=== PATIENT | male | born 1935 | race Caucasian/White ===

== ENCOUNTER 2019-11-20 03:58 | Inpatient (IN) | payer MEDICARE, BC ==
[2019-11-20] MEDS ORDERED: Haloperidol Lactate 5 MG/ML SDV IM ONE (04:04)
--- NOTE | 2019-11-20 04:12 | EDM.PDOC ---
ED HPI GENERAL MEDICAL PROBLEM - General Chief Complaint: Behavioral/Psych Stated Complaint: MEDICAL [facility]IA [facility] Time Seen by Provider: 11/20/19 04:05 Source of Information: Reports: Patient History Limitations: Reports: Other (initially no old records) - History of Present Illness INITIAL COMMENTS - FREE TEXT/NARRATIVE: 84 yo male was recently discharged from [facility] in [place] and admitted yesterday to the memory care unit at [facility]. They report that he was agitated all day there, but they did nothing apparently for this. Now tonight he had a fall with minor injuries so sent him via EMS to the ER telling them they can't handle him. Has known dementia. Has apparently been falling a lot lately. Had a CT scan of his head 10/30/2019. Onset: Other (yesterday?) Onset Date: 11/19/19 Duration: Day(s): (1), Constant Location: Reports: Generalized Quality: Reports: Other (unknown if there is pain, not able to verbalize) Severity: Moderate Improves with: Reports: None Worsens with: Reports: Other (unknown) Context: Reports: Other (See HPI) Associated Symptoms: Reports: Confusion, Other (agitation). Denies: Fever/ Chills Treatments [employer]: Reports: Other (see below) (usual meds only) - Related Data Allergies Allergy/AdvReac Type Severity Reaction Status Date / Time amoxicillin Allergy Cannot Verified 11/20/19 04:26 Remember meperidine [From Demerol] Allergy Cannot Verified 11/20/19 04:26 Remember Sulfa (Sulfonamide Allergy Cannot Verified 11/20/19 04:26 Antibiotics) Remember Home Meds: Home Meds Acetaminophen [Tylenol Extra Strength] 1,000 mg PO TID 11/20/19 [History] Aspirin 81 mg PO DAILY 11/20/19 [History] Finasteride 5 mg PO DAILY 11/20/19 [History] LORazepam [Lorazepam] 0.25 mg PO BID 11/20/19 [History] Latanoprost/Pf [Latanoprost 0.005% Eye Drop] 1 drop EYEBOTH BEDTIME 11/20/19 [ History] Levothyroxine Sodium [Synthroid] 100 mcg PO ACBREAKFAST 11/20/19 [History] Memantine HCl 10 mg PO BID 11/20/19 [History] Tamsulosin HCl [Flomax] 0.4 mg PO BID 11/20/19 [History] risperiDONE 0.25 mg PO QID 11/20/19 [History] traZODone HCl [Trazodone HCl] 50 mg PO BEDTIME 11/20/19 [History] ED ROS GENERAL - Review of Systems Review Of Systems: Unable To Obtain (due to dementia) Reason Not Obtained: altered level of consciousness/dementia - Physical Exam Exam: See Below Exam Limited By: Altered Mental Status General Appearance: Mild Distress, Thin, Other (mildly agitated) Eye Exam: Bilateral Eye: Normal Inspection Ears: Normal External Exam Nose: Normal Inspection, No Blood Throat/Mouth: Normal Voice, No Airway Compromise, Other (dry appearing oral mucosa) Head Exam: Facial Ecchymosis (forehead, not new) Neck: Normal Inspection Respiratory/Chest: No Respiratory Distress, Lungs Clear, Normal Breath Sounds, No Accessory Muscle Use, Other (mildly tachypneic) Cardiovascular: Regular Rate, Rhythm, No Edema GI/Abdominal: Normal Bowel Sounds, Soft, Non-Tender, No Distention Neuro Exam (Abbreviated): Alert, No Motor/Sensory Deficits, Confused, Disoriented. No: Oriented, Normal Cognition Extremities: Normal Inspection, Normal Range of Motion, Non-Tender, No Pedal Edema Psychiatric: Normal Affect, Normal Mood Skin Exam: Warm, Dry, Intact, No Rash, Ecchymosis, Wound/Incision (skin tear R elbow). No: Increased Warmth Course - Vital Signs Text/Narrative:: bladder scan [address] Miles called @ 0622h Last Recorded V/S: Last Vital Signs Temp 35.7 C L 11/21/19 19:35 Pulse 124 H 11/21/19 19:35 Resp 121 H 11/21/19 19:35 BP 103/66 11/21/19 19:35 Pulse Ox 86 L 11/21/19 19:35 - Orders/Labs/Meds Orders: Medication Orders Albuterol (Proventil Neb Soln) 2.5 mg NEB Q2H PRN PRN Reason: Shortness of Breath Last Admin: 11/21/19 14:36 Dose: 2.5 mg Atropine Sulfate (Atropine 1%) 0 ml SL Q4H PRN PRN Reason: secretions Last Admin: 11/21/19 16:22 Dose: 4 drop Haloperidol Lactate (Haldol) 2 mg IVPUSH Q6H PRN PRN Reason: severe agitation Last Admin: 11/21/19 11:17 Dose: 2 mg Admin: 11/20/19 22:24 Dose: 2 mg Promethazine HCl 6.25 mg/ (Sodium Chloride) 50.25 mls @ 200 mls/hr IV Q6H PRN PRN Reason: Nausea/Vomiting Latanoprost (Xalatan 0.005% Ophth Soln) 0 ml EYEBOTH BEDTIME NAYELI Last Admin: 11/20/19 20:57 Dose: 1 drop Levothyroxine Sodium (Synthroid) 100 mcg PO ACBREAKFAST NAYELI Last Admin: 11/21/19 11:21 Dose: Not Given Admin: 11/20/19 08:43 Dose: 100 mcg Lorazepam (Ativan Oral Concentrate 1mg/0.5 Ml U/D) 0.5 mg PO Q1H PRN PRN Reason: Agitation Last Admin: 11/21/19 17:50 Dose: 0.5 mg Morphine Sulfate (Morphine 10 Mg/0.5 Ml Oral Syringe) 10 mg PO Q1H PRN PRN Reason: air hunger Last Admin: 11/21/19 17:28 Dose: 10 mg Admin: 11/21/19 16:26 Dose: 10 mg Ondansetron HCl (Zofran Odt) 4 mg PO Q6H PRN PRN Reason: Nausea able to take PO Labs: Laboratory Tests 11/20/19 11/20/19 11/20/19 Range/Units 04:15 04:15 04:55 WBC 11.5 H (4.5-11.0) K/uL RBC 3.94 L (4.30-5.90) M/uL Hgb 12.9 (12.0-15.0) g/dL Hct 42.1 (40.0-54.0) % MCV 107 H (80-98) fL MCH 33 H (27-31) pg MCHC 31 L (32-36) % Plt Count 158 (150-400) K/uL Puncture Site L brachial ABG pH 7.677 H* (7.350-7.450) ABG pCO2 15.9 L* (35.0-42.0) mmHg ABG pO2 70.3 L (75.0-100.0) mmHg ABG HCO3 19.0 L (22.0-26.0) mmol/L ABG Total CO2 16.1 L (23.0-27.0) mmol/L ABG O2 Saturation 97.0 (95.0-98.0) % ABG O2 Content 17.4 (15.0-23.0) %vol ABG Base Excess 0.6 mm/L ABG Hemoglobin 13.0 L (13.5-18.0) g/dL ABG Oxyhemoglobin 95.3 % ABG Carboxyhemoglobin 1.2 (0.0-1.6) % ABG Methemoglobin 0.6 % O2 Delivery Device Nasal cannula Oxygen Flow Rate 3.0 L Sodium 153 H (140-148) mmol/L Potassium 4.6 (3.6-5.2) mmol/L Chloride 115 H (100-108) mmol/L Carbon Dioxide 24 (21-32) mmol/L Anion Gap 18.6 H (5.0-14.0) mmol/L BUN 74 H (7-18) mg/dL Creatinine 2.5 H (0.8-1.3) mg/dL Est Cr Clr Drug Dosing TNP Estimated GFR (MDRD) 25 L (>60) Glucose 124 H (74-106) mg/dL Calcium 8.6 (8.5-10.1) mg/dL Troponin I 0.057 H (0.000-0.056) ng/mL Urine Color (YELLOW) Urine Appearance (CLEAR) Urine pH (5.0-8.0) Ur Specific [place] (1.008-1.030) Urine Protein (NEGATIVE) mg/dL Urine Glucose (UA) (NEGATIVE) mg/dL Urine Ketones (NEGATIVE) mg/dL Urine Occult Blood (NEGATIVE) Urine Nitrite (NEGATIVE) Urine Bilirubin (NEGATIVE) Urine Urobilinogen (0.2-1.0) EU/dL Ur Leukocyte Esterase (NEGATIVE) Urine RBC (0-5) Urine WBC (0-5) Ur Epithelial Cells Amorphous Sediment Urine Bacteria Urine Mucus 11/20/19 Range/Units 06:28 WBC (4.5-11.0) K/uL RBC (4.30-5.90) M/uL Hgb (12.0-15.0) g/dL Hct (40.0-54.0) % MCV (80-98) fL MCH (27-31) pg MCHC (32-36) % Plt Count (150-400) K/uL Puncture Site ABG pH (7.350-7.450) ABG pCO2 (35.0-42.0) mmHg ABG pO2 (75.0-100.0) mmHg ABG HCO3 (22.0-26.0) mmol/L ABG Total CO2 (23.0-27.0) mmol/L ABG O2 Saturation (95.0-98.0) % ABG O2 Content (15.0-23.0) %vol ABG Base Excess mm/L ABG Hemoglobin (13.5-18.0) g/dL ABG Oxyhemoglobin % ABG Carboxyhemoglobin (0.0-1.6) % ABG Methemoglobin % O2 Delivery Device Oxygen Flow Rate L Sodium (140-148) mmol/L Potassium (3.6-5.2) mmol/L Chloride (100-108) mmol/L Carbon Dioxide (21-32) mmol/L Anion Gap (5.0-14.0) mmol/L BUN (7-18) mg/dL Creatinine (0.8-1.3) mg/dL Est Cr Clr Drug Dosing Estimated GFR (MDRD) (>60) Glucose (74-106) mg/dL Calcium (8.5-10.1) mg/dL Troponin I (0.000-0.056) ng/mL Urine Color Yellow (YELLOW) Urine Appearance Clear (CLEAR) Urine pH 7.5 (5.0-8.0) Ur Specific [place] 1.020 (1.008-1.030) Urine Protein Trace H (NEGATIVE) mg/dL Urine Glucose (UA) Negative (NEGATIVE) mg/dL Urine Ketones Negative (NEGATIVE) mg/dL Urine Occult Blood Negative (NEGATIVE) Urine Nitrite Negative (NEGATIVE) Urine Bilirubin Negative (NEGATIVE) Urine Urobilinogen 2.0 H (0.2-1.0) EU/dL Ur Leukocyte Esterase Negative (NEGATIVE) Urine RBC 0-5 (0-5) Urine WBC 0-5 (0-5) Ur Epithelial Cells Rare Amorphous Sediment Not seen Urine Bacteria Few Urine Mucus Not seen Meds: Medications Generic Name Dose Route Start Last Admin Trade Name Freq PRN Reason Stop Dose Admin Albuterol 2.5 mg 11/21/19 14:13 11/21/19 14:36 Proventil Neb Soln NEB 2.5 mg Q2H PRN Administration Shortness of Breath Atropine Sulfate 0 ml 11/21/19 15:55 11/21/19 16:22 Atropine 1% SL 4 drop Q4H PRN Administration secretions Haloperidol Lactate 2 mg 11/20/19 15:42 11/21/19 11:17 Haldol IVPUSH 2 mg Q6H PRN Administration severe agitation Promethazine HCl 6.25 mg/ 50.25 mls @ 200 mls/hr 11/20/19 07:30 Sodium Chloride IV Q6H PRN Nausea/Vomiting Latanoprost 0 ml 11/20/19 21:00 11/20/19 20:57 Xalatan 0.005% Ophth Soln EYEBOTH 1 drop BEDTIME NAYELI Administration Levothyroxine Sodium 100 mcg 11/20/19 08:30 11/21/19 11:21 Synthroid PO Not Given ACBREAKFAST NAYELI Lorazepam 0.5 mg 11/21/19 15:57 11/21/19 17:50 Ativan Oral Concentrate 1mg/0.5 Ml U/D PO 0.5 mg Q1H PRN Administration Agitation Morphine Sulfate 10 mg 11/21/19 15:55 11/21/19 17:28 Morphine 10 Mg/0.5 Ml Oral Syringe PO 10 mg Q1H PRN Administration air hunger Ondansetron HCl 4 mg 11/20/19 07:30 Zofran Odt PO Q6H PRN Nausea able to take PO Discontinued Medications Generic Name Dose Route Start Last Admin Trade Name Freq PRN Reason Stop Dose Admin Acetaminophen 650 mg 11/20/19 07:30 Tylenol PO Q4H PRN Pain (Mild 1-3)/fever Acetaminophen 1,000 mg 11/20/19 09:00 11/21/19 14:31 Tylenol Extra Strength PO Not Given TID [facility] Aspirin 81 mg 11/20/19 09:00 11/21/19 11:21 Aspirin PO Not Given DAILY [facility] Diphenhydramine HCl 25 mg 11/20/19 05:22 11/20/19 05:26 Benadryl IVPUSH 11/20/19 05:23 25 mg ONETIME ONE Administration Divalproex Sodium 250 mg 11/20/19 09:00 11/21/19 11:21 Divalproex Sodium PO Not Given BIDMEALS NAYELI Finasteride 5 mg 11/20/19 09:00 11/21/19 11:22 Proscar PO Not Given DAILY NAYELI Haloperidol Lactate 5 mg 11/20/19 04:04 11/20/19 04:31 Haldol IM 11/20/19 04:05 5 mg ONETIME ONE Administration Haloperidol Lactate 5 mg 11/20/19 05:22 11/20/19 05:27 Haldol IVPUSH 11/20/19 05:23 5 mg ONETIME ONE Administration Lactated Ringer's 1,000 mls @ 1,000 mls/hr 11/20/19 04:03 11/20/19 06:09 Ringers, Lactated IV 11/20/19 05:02 Not Given BOLUS ONE Sodium Chloride 1,000 mls @ 150 mls/hr 11/20/19 06:15 11/20/19 06:13 Normal Saline IV 150 mls/hr ASDIRECTED NAYELI Administration Potassium Chloride/Sodium Chloride 1,000 mls @ 100 mls/hr 11/20/19 07:45 23:29 Normal Saline With 20 Meq Kcl IV 100 mls/hr ASDIRECTED NAYELI Administration Dextrose/Water 1,000 mls @ 100 mls/hr 11/21/19 07:45 11/21/19 08:09 Dextrose 5% In Water IV 100 mls/hr ASDIRECTED NAYELI Administration Lorazepam 0.5 mg 11/20/19 05:12 11/20/19 05:19 Ativan IVPUSH 11/20/19 05:13 0.5 mg ONETIME ONE Administration Lorazepam 0.5 mg 11/20/19 06:14 11/20/19 06:19 Ativan IVPUSH 11/20/19 06:15 0.5 mg ONETIME ONE Administration Lorazepam 0.25 mg 11/20/19 09:00 11/21/19 11:21 Ativan PO Not Given BID NAYELI Melatonin 9 mg 11/20/19 21:00 11/20/19 20:56 Melatonin PO 9 mg BEDTIME NAYELI Administration Memantine 10 mg 11/20/19 09:00 11/21/19 11:22 Namenda PO Not Given BID [facility] Morphine Sulfate 5 mg 11/20/19 08:57 11/21/19 14:30 Morphine 10 Mg/0.5 Ml Oral Syringe PO 5 mg Q2H PRN Administration Pain Risperidone 0.25 mg 11/20/19 10:00 Risperidal PO QID NAYELI Risperidone 0.5 mg 11/20/19 09:15 11/21/19 11:22 Risperidal PO Not Given BID NAYELI Tamsulosin HCl 0.4 mg 11/20/19 08:00 11/21/19 11:21 Flomax PO Not Given BIDPC NAYELI Trazodone HCl 50 mg 11/20/19 21:00 11/20/19 20:57 Trazodone PO 50 mg BEDTIME NAYELI Administration Departure - Departure Time of Disposition: 06:25 Disposition: Admitted As Inpatient 67 Condition: Poor Clinical Impression: Dehydration, Hypernatremia, Hyperventilation, Respiratory alkalosis, Agitation - Discharge Information *PRESCRIPTION DRUG MONITORING PROGRAM REVIEWED*: No *COPY OF PRESCRIPTION DRUG MONITORING REPORT IN PATIENT IRIS: No Sepsis Event Note - Focused Exam Date Exam was Performed: 11/22/19 Time Exam was Performed: 08:18
[2019-11-20] MEDS: Lactated Ringers 1,000 ML IV ONE ×2 (05:12→06:09)
[2019-11-20] MEDS ORDERED: LORazepam 2 MG/ML SDV IVPUSH ONE ×2 (05:12→06:14)
[2019-11-20] MEDS ORDERED: diphenhydrAMINE 50 MG/ML SDV IVPUSH ONE (05:22)
[2019-11-20] MEDS ORDERED: Haloperidol Lactate 5 MG/ML SDV IVPUSH ONE (05:22)
[2019-11-20] MEDS ORDERED: Sodium Chloride 0.9% 1,000 ML IV SCH (06:15)
--- NOTE | 2019-11-20 07:10 | PCM.HP.2 ---
H&P History of Present Illness - General Date of Service: 11/20/19 Source of Information: Snf Records, Old Records. No: Patient, Significant Other History Limitations: Reports: Altered Mental Status (patient is nonverbal and spouse has not returned calls) - History of Present Illness Initial Comments - Free Text/Narative: Patient is an 84yo male with profound dementia was brought to the ER because of a fall [facility] a [facility]. He was recently transferred to the nursing facility from an inpatient memory care facility. He is agitated but has improved with haldol, but is still unresponsive. He does respond to pain and some stimuli, but doesn't respond to his name or any verbal commands. His was not available to answer questions. Onset of Symptoms: Reports: Gradual, Unknown/Unsure - Related Data Allergies/Adverse Reactions: Allergies Allergy/AdvReac Type Severity Reaction Status Date / Time amoxicillin Allergy Cannot Verified 11/20/19 04:26 Remember meperidine [From Demerol] Allergy Cannot Verified 11/20/19 04:26 Remember Sulfa (Sulfonamide Allergy Cannot Verified 11/20/19 04:26 Antibiotics) Remember Home Medications: Home Meds Acetaminophen [Tylenol Extra Strength] 1,000 mg PO TID 11/20/19 [History] Aspirin 81 mg PO DAILY 11/20/19 [History] Finasteride 5 mg PO DAILY 11/20/19 [History] LORazepam [Lorazepam] 0.25 mg PO BID 11/20/19 [History] Latanoprost/Pf [Latanoprost 0.005% Eye Drop] 1 drop EYEBOTH BEDTIME 11/20/19 [ History] Levothyroxine Sodium [Synthroid] 100 mcg PO ACBREAKFAST 11/20/19 [History] Memantine HCl 10 mg PO BID 11/20/19 [History] Tamsulosin HCl [Flomax] 0.4 mg PO BID 11/20/19 [History] risperiDONE 0.25 mg PO QID 11/20/19 [History] traZODone HCl [Trazodone HCl] 50 mg PO BEDTIME 11/20/19 [History] Past Medical History HEENT History: Reports: Glaucoma, Macular Degeneration, Sinusitis Cardiovascular History: Reports: Afib, Angina, Arrhythmia, Pacemaker, Syncope, Other (See Below) Other Cardiovascular History: ventricular tachycardia Gastrointestinal History: Reports: GERD, Other (See Below) Other Gastrointestinal History: inguinal hernia Genitourinary History: Reports: BPH, Chronic Renal Insuffiency, Renal Calculus, Urinary Incontinence, Other (See Below) Other Genitourinary History: herpes genitalia, impotence Musculoskeletal History: Reports: Back Pain, Chronic, Other (See Below) Other Musculoskeletal History: hip pain Neurological History: Reports: Alzheimers Disease, Neuropathy, Peripheral, TIA Psychiatric History: Reports: Depression, Other (See Below) Other Psychiatric History: delirious Endocrine/Metabolic History: Reports: Hyperthyroidism, Hypothyroidism, Other ( See Below) Other Endocrine/Metabolic History: graves disease - Past Surgical History Cardiovascular Surgical History: Reports: Pacer Social & Family History - Family History Family Medical History: Unobtainable - Tobacco Use Smoking Status *Q: Unknown Ever Smoked H&P Review of Systems - Review of Systems: Review Of Systems: Unable To Obtain Reason Not Obtained: Patient is nonverbal due to late stage dementia Exam - Exam Exam: See Below - Vital Signs Vital Signs: Last Vital Signs Temp 36.2 C 11/20/19 04:03 Pulse 86 11/20/19 06:06 Resp 34 H 11/20/19 06:06 BP Pulse Ox 96 11/20/19 06:06 Weight: 77.111 kg - Exam General: Mild Distress, Obtunded. No: Alert, Oriented, Cooperative Neck: Supple, Trachea Midline, 2 Lungs: Clear to Auscultation, Normal Respiratory Effort Cardiovascular: Regular Rate, Regular Rhythm GI/Abdominal Exam: Normal Bowel Sounds, Soft, Non-Tender, No Organomegaly, No Distention, No Abnormal Bruit, No Mass, Pelvis Stable (Male) Exam: Deferred Rectal (Males) Exam: Deferred Back Exam: Normal Inspection, Full Range of Motion, NT Extremities: Normal Inspection, Normal Range of Motion, Non-Tender, No Pedal Edema, Normal Capillary Refill Skin: Warm, Dry, Wound (skin tear on R elbow POA). No: Intact Neuro Extensive - Mental Status: Inattentive, Nl Response to Commands, Withdraws to Pain. No: Alert, Oriented x3, Normal Mood/Affect, Normal Cognition , Memory Intact Neuro Extensive - Motor, Sensory, Reflexes: Motor/Sensory Deficits Psychiatric: Other (not able to respond). No: Alert, Normal Affect, Normal Mood - Patient Data Lab Results Last 24 hrs: Laboratory Results - last 24 hr 11/20/19 11/20/19 11/20/19 Range/Units 04:15 04:15 04:55 WBC 11.5 H (4.5-11.0) K/uL RBC 3.94 L (4.30-5.90) M/uL Hgb 12.9 (12.0-15.0) g/dL Hct 42.1 (40.0-54.0) % MCV 107 H (80-98) fL MCH 33 H (27-31) pg MCHC 31 L (32-36) % Plt Count 158 (150-400) K/uL Puncture Site L brachial ABG pH 7.677 H* (7.350-7.450) ABG pCO2 15.9 L* (35.0-42.0) mmHg ABG pO2 70.3 L (75.0-100.0) mmHg ABG HCO3 19.0 L (22.0-26.0) mmol/L ABG Total CO2 16.1 L (23.0-27.0) mmol/L ABG O2 Saturation 97.0 (95.0-98.0) % ABG O2 Content 17.4 (15.0-23.0) %vol ABG Base Excess 0.6 mm/L ABG Hemoglobin 13.0 L (13.5-18.0) g/dL ABG Oxyhemoglobin 95.3 % ABG Carboxyhemoglobin 1.2 (0.0-1.6) % ABG Methemoglobin 0.6 % O2 Delivery Device Nasal cannula Oxygen Flow Rate 3.0 L Sodium 153 H (140-148) mmol/L Potassium 4.6 (3.6-5.2) mmol/L Chloride 115 H (100-108) mmol/L Carbon Dioxide 24 (21-32) mmol/L Anion Gap 18.6 H (5.0-14.0) mmol/L BUN 74 H (7-18) mg/dL Creatinine 2.5 H (0.8-1.3) mg/dL Est Cr Clr Drug Dosing TNP Estimated GFR (MDRD) 25 L (>60) Glucose 124 H (74-106) mg/dL Calcium 8.6 (8.5-10.1) mg/dL Troponin I 0.057 H (0.000-0.056) ng/mL Urine Color (YELLOW) Urine Appearance (CLEAR) Urine pH (5.0-8.0) Ur Specific [place] (1.008-1.030) Urine Protein (NEGATIVE) mg/dL Urine Glucose (UA) (NEGATIVE) mg/dL Urine Ketones (NEGATIVE) mg/dL Urine Occult Blood (NEGATIVE) Urine Nitrite (NEGATIVE) Urine Bilirubin (NEGATIVE) Urine Urobilinogen (0.2-1.0) EU/dL Ur Leukocyte Esterase (NEGATIVE) Urine RBC (0-5) Urine WBC (0-5) Ur Epithelial Cells Amorphous Sediment Urine Bacteria Urine Mucus 11/20/19 Range/Units 06:28 WBC (4.5-11.0) K/uL RBC (4.30-5.90) M/uL Hgb (12.0-15.0) g/dL Hct (40.0-54.0) % MCV (80-98) fL MCH (27-31) pg MCHC (32-36) % Plt Count (150-400) K/uL Puncture Site ABG pH (7.350-7.450) ABG pCO2 (35.0-42.0) mmHg ABG pO2 (75.0-100.0) mmHg ABG HCO3 (22.0-26.0) mmol/L ABG Total CO2 (23.0-27.0) mmol/L ABG O2 Saturation (95.0-98.0) % ABG O2 Content (15.0-23.0) %vol ABG Base Excess mm/L ABG Hemoglobin (13.5-18.0) g/dL ABG Oxyhemoglobin % ABG Carboxyhemoglobin (0.0-1.6) % ABG Methemoglobin % O2 Delivery Device Oxygen Flow Rate L Sodium (140-148) mmol/L Potassium (3.6-5.2) mmol/L Chloride (100-108) mmol/L Carbon Dioxide (21-32) mmol/L Anion Gap (5.0-14.0) mmol/L BUN (7-18) mg/dL Creatinine (0.8-1.3) mg/dL Est Cr Clr Drug Dosing Estimated GFR (MDRD) (>60) Glucose (74-106) mg/dL Calcium (8.5-10.1) mg/dL Troponin I (0.000-0.056) ng/mL Urine Color Yellow (YELLOW) Urine Appearance Clear (CLEAR) Urine pH 7.5 (5.0-8.0) Ur Specific [place] 1.020 (1.008-1.030) Urine Protein Trace H (NEGATIVE) mg/dL Urine Glucose (UA) Negative (NEGATIVE) mg/dL Urine Ketones Negative (NEGATIVE) mg/dL Urine Occult Blood Negative (NEGATIVE) Urine Nitrite Negative (NEGATIVE) Urine Bilirubin Negative (NEGATIVE) Urine Urobilinogen 2.0 H (0.2-1.0) EU/dL Ur Leukocyte Esterase Negative (NEGATIVE) Urine RBC 0-5 (0-5) Urine WBC 0-5 (0-5) Ur Epithelial Cells Rare Amorphous Sediment Not seen Urine Bacteria Few Urine Mucus Not seen Result Diagrams: 11/20/19 04:15 11/20/19 04:15 Sepsis Event Note - Evaluation Sepsis Screening Result: No Definite Risk - Focused Exam Vital Signs: Vital Signs Temp Pulse Resp Pulse Ox 11/20/19 06:06 86 34 H 96 11/20/19 04:03 36.2 C 105 H 42 H 90 L Date Exam was Performed: 11/20/19 Time Exam was Performed: 07:46 *Q Meaningful Use (ADM) - VTE *Q VTE Mechanical Contraindications *Q: At Risk for Falls - Problem List (1) Alzheimer's dementia with behavioral disturbance SNOMED Code(s): 0723038616699 ICD Code: G30.9 - ALZHEIMER'S DISEASE, UNSPECIFIED; F02.81 - DEMENTIA IN OTH DISEASES CLASSD ELSWHR W BEHAVIORAL DISTURB Status: Acute Current Visit: Yes Onset Date: Unknown Problem Details: Patient unable to understand or respond to questions or stimulus besides pain. Given haldol. Patient able to take oral medications at baseline Qualifiers: Alzheimer's disease onset: unspecified onset Qualified Code(s): G30.9 - Alzheimer's disease, unspecified; F02.81 - Dementia in other diseases classified elsewhere with behavioral disturbance (2) Agitation SNOMED Code(s): 474762587 ICD Code: R45.1 - RESTLESSNESS AND AGITATION Status: Acute Current Visit : Yes Onset Date: Unknown Problem Details: Patient, per records, has agitation and behavioral issues at baseline. Haldol given to help with agitation (3) Dehydration SNOMED Code(s): 50476088 ICD Code: E86.0 - DEHYDRATION Status: Acute Current Visit: Yes Onset Date: Unknown Problem Details: patient receiving IV fluids in ER, will continue and recheck labs (4) Hypothyroidism SNOMED Code(s): 15892227 ICD Code: E03.9 - HYPOTHYROIDISM, UNSPECIFIED Status: Acute Current Visit : Yes Onset Date: Unknown Problem Details: Will continue levothyroxine Qualifiers: Hypothyroidism type: unspecified Qualified Code(s): E03.9 - Hypothyroidism , unspecified (5) BPH (benign prostatic hyperplasia) SNOMED Code(s): 438244084 ICD Code: N40.0 - BENIGN PROSTATIC HYPERPLASIA WITHOUT LOWER URINRY TRACT SYMP Status: Acute Current Visit: Yes Problem Details: Will continue flomax and proscar Qualifiers: Lower urinary tract symptom presence: unspecified whether lower urinary tract symptoms present Qualified Code(s): N40.0 - Benign prostatic hyperplasia without lower urinary tract symptoms (6) Hypernatremia SNOMED Code(s): 626317700 ICD Code: E87.0 - HYPEROSMOLALITY AND HYPERNATREMIA Status: Acute Current Visit: Yes Problem Details: Will continue IV fluids and recheck CMP Problem List Initiated/Reviewed/Updated: Yes Orders Last 24hrs: Active Orders 24 hr Category Date Time Status Bladder Scan [RC] ASDIRECTED Care 11/20/19 04:09 Active Sodium Chloride 0.9% [Normal Saline] 1,000 ml Med 11/20/19 06:15 Active IV ASDIRECTED Medication Orders Sodium Chloride (Normal Saline) 1,000 mls @ 150 mls/hr IV ASDIRECTED NAYELI Last Admin: 11/20/19 06:13 Dose: 150 mls/hr Resuscitation Status 11/20/19 07:30 Resuscitation Status Routine Resuscitation Status: DNR/DNI/Comfort Measures Abbreviations used in this policy: *Cardiopulmonary Resuscitation (CPR) *Do Not Resuscitate (DNR) *Do Not Intubate (DNI) Code status categories recognized at [facility] 1. Full Code a. If a patient experiences cardiac or respiratory arrest, all resuscitation efforts (including CPR, defibrillation, and airway management) will be performed. b. Patients without a specific code status order other than Full Code will be assumed to be Full Code Status. Intubation CPR Defibrillation YES YES YES 2. DNR a. If there are changes in the patients' vital signs and condition, including respiratory arrest, treatment with medications and intubation, if indicated will be performed. b. If a patient experiences cardiac arrest, resuscitation efforts (CPR and Defibrillation) will not be performed. Intubation CPR Defibrillation YES NO NO 3. DNR/DNI a. If there are changes in the patient's vital signs and condition, including respiratory arrest, treatment with medications and noninvasive airway management/positive pressure ventilation, if indicated will be performed b. If a patient experiences a cardiac arrest, resuscitation efforts ( including CPR, defibrillation and intubation) will not be performed. Intubation CPR Defibrillation NO NO NO 4. DNR/DNI/Comfort Measures a. All medical and nursing interventions will be for the sole purpose of providing pain/symptom management for the patient. b. If a patient experiences a cardiac or respiratory arrest, resuscitation efforts (including CPR, defibrillation and intubation) will not be performed. Intubation CPR Defibrillation No NO NO ACTIVE MED ORDERS Generic Name Dose Route Start Last Admin Trade Name Freq PRN Reason Stop Dose Admin Acetaminophen 650 mg 11/20/19 07:30 Tylenol PO Q4H PRN Pain (Mild 1-3)/fever Aspirin 81 mg 11/20/19 09:00 Aspirin PO DAILY NAYELI Finasteride 5 mg 11/20/19 09:00 Proscar PO DAILY NAYELI Sodium Chloride 1,000 mls @ 150 mls/hr 11/20/19 06:15 11/20/19 06:13 Normal Saline IV 150 mls/hr ASDIRECTED NAYELI Administration Promethazine HCl 6.25 mg/ 50.25 mls @ 200 mls/hr 11/20/19 07:30 Sodium Chloride IV Q6H PRN Nausea/Vomiting Potassium Chloride/Sodium Chloride 1,000 mls @ 100 mls/hr 11/20/19 07:45 Normal Saline With 20 Meq Kcl IV ASDIRECTED NAYELI Latanoprost 0.25 ml 11/20/19 21:00 Xalatan 0.005% Ophth Soln EYEBOTH BEDTIME NAYELI Levothyroxine Sodium 100 mcg 11/21/19 07:30 Synthroid PO ACBREAKFAST NAYELI Lorazepam 0.25 mg 11/20/19 09:00 Ativan PO BID NAYELI Memantine 10 mg 11/20/19 09:00 Namenda PO BID NAYELI Ondansetron HCl 4 mg 11/20/19 07:30 Zofran Odt PO Q6H PRN Nausea able to take PO Risperidone 0.25 mg 11/20/19 10:00 Risperidal PO QID NAYELI Tamsulosin HCl 0.4 mg 11/20/19 08:00 Flomax PO BIDPC NAYELI Trazodone HCl 50 mg 11/20/19 21:00 Trazodone PO BEDTIME NAYELI ACTIVE NON-MED ORDERS/Dietary 11/20/19 Breakfast Mechanical Soft Diet [DIET] Comment: ACTIVE NON-MED ORDERS/Care 11/20/19 04:09 Bladder Scan [RC] ASDIRECTED 11/20/19 07:30 Antiembolic Devices [RC] .Routine Oxygen Therapy [RC] PRN Maintain SpO2% greater than: 92 Oxygen Therapy Mode, Primary: Nasal Cannula Oxygen Flow Rate (L/min): 3 Oxygen Therapy Mode, Secondary: Nasal Cannula Flow Rate (L/min), Secondary: 4 Up With Assistance [RC] ASDIRECTED Urinary Catheter Assessment [RC] ASDIRECTED VTE/DVT Education [RC] Per Unit Routine Vital Signs [RC] Q4H 11/20/19 07:32 Intake and Output [RC] QSHIFT Pulse Oximetry [RC] PRN ACTIVE NON-MED ORDERS/Orderable Interventions Activity, Up With Assistance Start: 11/20/19 07: 30 Freq: ASDIRECTED Status: Active Protocol: Antiembolic Devices Start: 11/20/19 07: 30 Text: Status: Active Freq: .Routine Protocol: Bladder Scanner Start: 11/20/19 04: 09 Text: Bedside Status: Active Freq: ASDIRECTED Protocol: BLADDER Document 11/20/19 04:32 KATELYN (Rec: 11/20/19 04:32 KATELYN [id number]) Education: VTE/DVT Topics Start: 11/20/19 07: 30 Freq: Per Unit Routine Status: Active Protocol: Intake and Output Start: 11/20/19 07: 32 Text: Status: Active Freq: QSHIFT Protocol: Oxygen Therapy Start: 11/20/19 07: 30 Freq: PRN Status: Active Protocol: Pulse Oximetry Start: 11/20/19 07: 32 Text: with vitals for shortness of breath Status: Active Freq: PRN Protocol: Urinary Catheter Assessment Start: 11/20/19 07: 30 Text: Status: Active Freq: ASDIRECTED Protocol: Vital Signs Start: 11/20/19 07: 30 Text: Click to edit a change in frequency and times. Status: Active Freq: Q4H Protocol: VS.TEMP ACTIVE NON-MED ORDERS/Consults 11/20/19 07:30 Consult to Case Management/Hot Mix Operator [CONS] Routine Physician Instructions: Comment: Service(s) to be Consulted: Case Manage/Behav Health Case Manage&Social Servic ACTIVE NON-MED ORDERS/LAB 11/21/19 07:30 COMPREHENSIVE METABOLIC PN,CMP [CHEM] Timed Specimen: Send someone from the department to collect Comment: ACTIVE ORDERS/MEDS 11/20/19 06:15 Sodium Chloride 0.9% [Normal Saline] 1,000 ml IV ASDIRECTED 11/20/19 07:30 Acetaminophen [Tylenol] 650 mg PO Q4H PRN Ondansetron [Zofran ODT] 4 mg PO Q6H PRN Promethazine [Phenergan] 6.25 mg Sodium Chloride 0.9% [Normal Saline] 50 ml IV Q6H 11/20/19 07:45 Sodium Chloride 0.9% with KCl 20 mEq @ 100 mL/Hr (1000 mL) NS + KCl 20mEq/L [ Normal Saline with 20 mEq KCl] 1,000 ml IV ASDIRECTED 11/20/19 08:00 Tamsulosin [Flomax] 0.4 mg PO BIDPC 11/20/19 09:00 Aspirin 81 mg PO DAILY Finasteride [Proscar] 5 mg PO DAILY LORazepam [Ativan] 0.25 mg PO BID Memantine [Namenda] 10 mg PO BID 11/20/19 10:00 risperiDONE [RisperiDAL] 0.25 mg PO QID 11/20/19 21:00 Latanoprost [Xalatan 0.005% Ophth Soln] 0.25 ml EYEBOTH BEDTIME traZODone 50 mg PO BEDTIME 11/21/19 07:30 Levothyroxine [Synthroid] 100 mcg PO ACBREAKFAST ACTIVE NON-MED ORDERS/Other 11/20/19 07:30 Patient Status [ADT] Routine Patient Status: Admit to Inpatient Admission Diagnosis/Problem: Alzheimer's dementia with behavioral disturbance Reason for Admit: Agitation, confusion, dehydration Nurse Unit Type: Critical Care Adult Location Preference: ICU Admitting Physician: Amanda Miles Attending Physician: Terrence Abel Medicare 96 Hour Certification Statement: This Patient is Admitted for Inpatient Services and is Medically Appropriate and Meets Medical Necessity for Inpatient Admission. I Reasonably Expect the Patient will Require Inpatient Services that Span a Period of Over 2 Midnights. My Rationale for Medically Necessary Inpatient Care will be Found in the Admission History & Physical and Progress Notes. I Reasonably Expect the Patient to be Discharged or Transferred within 96 Hours After Admission to this Critical Access Hospital. Provider Acknowledgement/Certification: Amanda Miles Anticoagulation Contraindications VTE [AST] Per Unit Routine Physician Instructions: use SCD and Hose VTE Anticoagulation Contraindications: Medical/Procedure Contrai Special Instructions: Patient is very high fall risk 11/20/19 07:33 Antiembolic Hose [OM.PC] Per Unit Routine Comment: Sequential Compression Device [OM.PC] Per Unit Routine Comment: - Mortality Measure Prognosis:: Good
[2019-11-20] MEDS ORDERED: Acetaminophen 325 MG Tab PO PRN (07:30)
[2019-11-20] MEDS ORDERED: Ondansetron 4 MG Tab.DIS PO PRN (07:30)
[2019-11-20] MEDS ORDERED: Promethazine 6.25 MG in Sodium Chloride 0.9% 50 ML IV PRN (07:30)
[2019-11-20] MEDS: LORazepam 0.5 MG Tab PO SCH ×2 (08:42→20:55)
[2019-11-20] MEDS: Levothyroxine 100 MCG Tab PO SCH (08:43)
[2019-11-20] MEDS: Tamsulosin 0.4 MG Cap.ER PO SCH ×2 (08:43→16:34)
[2019-11-20] MEDS: Memantine 10 MG Tab PO SCH ×2 (08:44→20:57)
[2019-11-20] MEDS: Aspirin 81 MG Tab.Chew PO SCH (08:44)
[2019-11-20] MEDS: Finasteride 5 MG Tab PO SCH (08:45)
[2019-11-20] MEDS: risperiDONE 0.5 MG Tab PO SCH ×2 (09:47→20:57)
[2019-11-20] MEDS: Divalproex Sodium Delayed-Release 250 MG Tab.CR PO SCH ×2 (09:47→16:34)
[2019-11-20] MEDS: Acetaminophen 500 MG Tab PO SCH ×3 (09:47→20:57)
[2019-11-20] MEDS ORDERED: risperiDONE 0.25 MG Tab PO SCH (10:00)
[2019-11-20] MEDS: Morphine 10 MG/0.5 ML Oral Syringe PO PRN ×3 (11:04→22:10)
[2019-11-20] MEDS: NS + KCl 20mEq/L 1,000 ML IV SCH ×2 (13:26→23:29)
[2019-11-20] MEDS: Latanoprost 0.005% Ophth Soln 2.5 ML Bottle EYEBOTH SCH (20:57)
[2019-11-20] MEDS ORDERED: traZODone 50 MG Tab PO SCH (21:00)
[2019-11-20] MEDS ORDERED: Melatonin 3 MG Tab PO SCH (21:00)
[2019-11-20] MEDS: Haloperidol Lactate 5 MG/ML SDV IVPUSH PRN (22:24)
[2019-11-21] MEDS: Morphine 10 MG/0.5 ML Oral Syringe PO PRN ×5 (01:03→17:28)
[2019-11-21] MEDS ORDERED: Dextrose 5% in Water 1,000 ML IV SCH (07:45)
--- NOTE | 2019-11-21 09:36 | PCM.PN ---
- General Info Date of Service: 11/21/19 Subjective Update: There is concerned that the patient aspirated last night while taking his evening pills. He is lethargic this morning and unable to take medications or provide any reliable history. Vital signs have been stable. He has not had significant agitation. He has not had any fevers. Sodium level remains high. In the early part of the afternoon he had increasing respiratory rate and is now on supplemental oxygen. Functional Status: Reports: Other (lethargic, not able to communicate ) - Patient Data Vitals - Most Recent: Last Vital Signs Temp 35.5 C L 11/21/19 08:00 Pulse 73 11/21/19 08:00 Resp 20 11/21/19 08:00 BP 85/56 L 11/21/19 08:00 Pulse Ox 95 11/21/19 08:00 Weight - Most Recent: 77.111 kg I&O - Last 24 Hours: Intake & Output 11/20/19 11/21/19 11/21/19 22:59 06:59 14:59 Intake Total 1326 1107 338 Balance 1326 1107 338 Lab Results Last 24 Hours: Laboratory Results - last 24 hr 11/21/19 11/21/19 Range/Units 05:00 05:00 WBC 17.3 H (4.5-11.0) K/uL RBC 3.73 L (4.30-5.90) M/uL Hgb 12.4 (12.0-15.0) g/dL Hct 40.4 (40.0-54.0) % MCV 108 H (80-98) fL MCH 33 H (27-31) pg MCHC 31 L (32-36) % Plt Count 130 L (150-400) K/uL Sodium 157 H (140-148) mmol/L Potassium 4.4 (3.6-5.2) mmol/L Chloride 122 H (100-108) mmol/L Carbon Dioxide 25 (21-32) mmol/L Anion Gap 14.4 H (5.0-14.0) mmol/L BUN 52 H (7-18) mg/dL Creatinine 2.0 H (0.8-1.3) mg/dL Est Cr Clr Drug Dosing 28.90 mL/min Estimated GFR (MDRD) 32 L (>60) Glucose 107 H (74-106) mg/dL Calcium 7.8 L (8.5-10.1) mg/dL Med Orders - Current: Current Medications Acetaminophen (Tylenol Extra Strength) 1,000 mg PO TID [facility] Last Admin: 11/20/19 20:57 Dose: 1,000 mg Aspirin (Aspirin) 81 mg PO DAILY [facility] Last Admin: 11/20/19 08:44 Dose: 81 mg Divalproex Sodium (Divalproex Sodium) 250 mg PO BIDMEALS [facility] Last Admin: 11/20/19 16:34 Dose: 250 mg Finasteride (Proscar) 5 mg PO DAILY [facility] Last Admin: 11/20/19 08:45 Dose: 5 mg Haloperidol Lactate (Haldol) 2 mg IVPUSH Q6H PRN PRN Reason: severe agitation Last Admin: 11/20/19 22:24 Dose: 2 mg Promethazine HCl 6.25 mg/ (Sodium Chloride) 50.25 mls @ 200 mls/hr IV Q6H PRN PRN Reason: Nausea/Vomiting Dextrose/Water (Dextrose 5% In Water) 1,000 mls @ 100 mls/hr IV ASDIRECTED [facility] Last Admin: 11/21/19 08:09 Dose: 100 mls/hr Latanoprost (Xalatan 0.005% Ophth Soln) 0 ml EYEBOTH BEDTIME [facility] Last Admin: 11/20/19 20:57 Dose: 1 drop Levothyroxine Sodium (Synthroid) 100 mcg PO ACBREAKFAST [facility] Last Admin: 11/20/19 08:43 Dose: 100 mcg Lorazepam (Ativan) 0.25 mg PO BID [facility] Last Admin: 11/20/19 20:55 Dose: 0.25 mg Melatonin (Melatonin) 9 mg PO BEDTIME [facility] Last Admin: 11/20/19 20:56 Dose: 9 mg Memantine (Namenda) 10 mg PO BID [facility] Last Admin: 11/20/19 20:57 Dose: 10 mg Morphine Sulfate (Morphine 10 Mg/0.5 Ml Oral Syringe) 5 mg PO Q2H PRN PRN Reason: Pain Last Admin: 11/21/19 01:03 Dose: 5 mg Ondansetron HCl (Zofran Odt) 4 mg PO Q6H PRN PRN Reason: Nausea able to take PO Risperidone (Risperidal) 0.5 mg PO BID [facility] Last Admin: 11/20/19 20:57 Dose: 0.5 mg Tamsulosin HCl (Flomax) 0.4 mg PO BIDPC [facility] Last Admin: 11/20/19 16:34 Dose: 0.4 mg Trazodone HCl (Trazodone) 50 mg PO BEDTIME [facility] Last Admin: 11/20/19 20:57 Dose: 50 mg Discontinued Medications Acetaminophen (Tylenol) 650 mg PO Q4H PRN PRN Reason: Pain (Mild 1-3)/fever Diphenhydramine HCl (Benadryl) 25 mg IVPUSH ONETIME ONE Stop: 11/20/19 05:23 Last Admin: 11/20/19 05:26 Dose: 25 mg Haloperidol Lactate (Haldol) 5 mg IM ONETIME ONE Stop: 11/20/19 04:05 Last Admin: 11/20/19 04:31 Dose: 5 mg Haloperidol Lactate (Haldol) 5 mg IVPUSH ONETIME ONE Stop: 11/20/19 05:23 Last Admin: 11/20/19 05:27 Dose: 5 mg Lactated Ringer's (Ringers, Lactated) 1,000 mls @ 1,000 mls/hr IV BOLUS ONE Stop: 11/20/19 05:02 Last Admin: 11/20/19 06:09 Dose: Not Given Sodium Chloride (Normal Saline) 1,000 mls @ 150 mls/hr IV ASDIRECTED [facility] Last Admin: 11/20/19 06:13 Dose: 150 mls/hr Potassium Chloride/Sodium Chloride (Normal Saline With 20 Meq Kcl) 1,000 mls @ 100 mls/hr IV ASDIRECTED [facility] Last Admin: 11/20/19 23:29 Dose: 100 mls/hr Lorazepam (Ativan) 0.5 mg IVPUSH ONETIME ONE Stop: 11/20/19 05:13 Last Admin: 11/20/19 05:19 Dose: 0.5 mg Lorazepam (Ativan) 0.5 mg IVPUSH ONETIME ONE Stop: 11/20/19 06:15 Last Admin: 11/20/19 06:19 Dose: 0.5 mg Risperidone (Risperidal) 0.25 mg PO QID [facility] - Exam Quality Assessment: Supplemental Oxygen General: Cooperative, No Acute Distress, Lethargic. No: Alert, Oriented HEENT: Pupils Equal. No: Mucous Membr. Moist/[place] (dry) Lungs: Normal Respiratory Effort, Rhonchi (few in upper lung renee ) Cardiovascular: Regular Rate, Regular Rhythm GI/Abdominal Exam: Normal Bowel Sounds, Soft, No Distention Extremities: No Pedal Edema. No: Increased Warmth Skin: Warm, Dry Psy/Mental Status: No: Alert, Agitated Sepsis Event Note - Evaluation Sepsis Screening Result: No Definite Risk - Focused Exam Vital Signs: Vital Signs Temp Pulse Resp BP Pulse Ox 11/21/19 08:00 35.5 C L 73 20 85/56 L 95 11/21/19 06:00 105 H 18 99/76 93 L 11/21/19 04:00 35.6 C L 97 20 102/69 94 L 11/21/19 02:07 92 20 102/61 97 11/21/19 00:00 35.8 C L 67 10 L 95/51 L 93 L 11/20/19 22:00 96 20 91/62 92 L Date Exam was Performed: 11/21/19 Time Exam was Performed: 14:48 - Problem List Review Problem List Initiated/Reviewed/Updated: Yes - My Orders Last 24 Hours: My Active Orders 11/20/19 08:57 Morphine [Morphine 10 MG/0.5 ML Oral Syringe] 5 mg PO Q2H PRN 11/20/19 09:00 Acetaminophen [Tylenol Extra Strength] 1,000 mg PO TID Divalproex Sodium 250 mg PO BIDMEALS 11/20/19 09:15 risperiDONE [RisperiDAL] 0.5 mg PO BID 11/20/19 15:42 Haloperidol Lactate [Haldol] 2 mg IVPUSH Q6H PRN 11/20/19 21:00 Melatonin 9 mg PO BEDTIME 11/21/19 07:45 Dextrose 5% in Water 1,000 ml IV ASDIRECTED 11/21/19 14:00 BASIC METABOLIC PANEL,BMP [CHEM] Timed 11/22/19 05:00 BASIC METABOLIC PANEL,BMP [CHEM] Timed CBC W/O DIFF,HEMOGRAM [HEME] Timed (1) - Plan Plan:: ASSESSMENT AND PLAN - Alzheimer's dementia with behavioral disturbance-dependent in all of his ADLs and lethargic. Family is planning a transition to hospice. New concern for aspiration as discussed below. He is lethargic but has not had significant agitation since the time of admission. -Hold current medications because of inability to swallow and lethargy Suspected aspiration pneumonitis-event occurred yesterday evening and respiratory status is now starting to decline. After discussion with family the care plan is limited given his declining status even prior to the hospital admission. -Chest x-ray to determine severity -Nebulizer trial to see if this provides additional comfort -Symptomatic management of pain and/or air hunger Hypernatremia-secondary to dehydration and free water deficit. -D5W Encounter for palliative care-patient has advanced dementia and has been declining fairly rapidly. Family does not want aggressive interventions performed. Maintenance issues - - DVT prophylaxis -mechanical - GI prophylaxis -not indicated - Nutrition -nothing by mouth because of lethargy and recent agitation - Gonzalez catheter -not indicated Disposition - I would [facility] with hosp[facility] if he survives this hospital stay Terrence Abel M.D.
[2019-11-21] MEDS: Haloperidol Lactate 5 MG/ML SDV IVPUSH PRN (11:17)
[2019-11-21] MEDS: Aspirin 81 MG Tab.Chew PO SCH (11:21)
[2019-11-21] MEDS: LORazepam 0.5 MG Tab PO SCH (11:21)
[2019-11-21] MEDS: Divalproex Sodium Delayed-Release 250 MG Tab.CR PO SCH (11:21)
[2019-11-21] MEDS: Tamsulosin 0.4 MG Cap.ER PO SCH (11:21)
[2019-11-21] MEDS: Levothyroxine 100 MCG Tab PO SCH (11:21)
[2019-11-21] MEDS: Memantine 10 MG Tab PO SCH (11:22)
[2019-11-21] MEDS: Acetaminophen 500 MG Tab PO SCH ×2 (11:22→14:31)
[2019-11-21] MEDS: risperiDONE 0.5 MG Tab PO SCH (11:22)
[2019-11-21] MEDS: Finasteride 5 MG Tab PO SCH (11:22)
[2019-11-21] MEDS ORDERED: Albuterol 0.083% 2.5 MG/3 ML Neb Soln NEB PRN (14:13)
--- NOTE | 2019-11-21 14:46 | CRLCR ---
HISTORY: Cough. Hypoxia. TECHNIQUE: Portable frontal view the chest. COMPARISON: None. FINDINGS: Patchy airspace consolidation in mid to lower right lung and left lung base. No moderate or large pleural effusion. Pulmonary vasculature is within normal limits. Cardiomediastinal silhouette size is within normal limits for technique. Single lead cardiac pacing device with lead terminating in the right ventricle. Surgical clips in the right upper quadrant. IMPRESSION: Patchy bilateral airspace disease, favor pneumonia. Dictated by Stephane Jones MD @ Nov 21 2019 2:41PM Signed by Dr. Stephane Jones @ Nov 21 2019 2:44PM
--- NOTE | 2019-11-21 16:00 | PCM.SN.2 ---
- Free Text/Narrative Note: Pt has had significant decline through the afternoon. Marci here at the bedside. We are moving to pure comfort care at this time. She feels that he would not want further aggressive cares given his recent decline and progressive dementia. She wants us to focus on comfort. I anticipate that he will pass in a matter of hours if he lasts that long given current resp status. Code status changed to DNR/DNI with comfort measures. Neel Abel MD
[2019-11-21] MEDS: Atropine Sulfate Ophth 2 ML Drops SL PRN (16:22)
[2019-11-21] MEDS: LORazepam ORAL Concentrate 1MG/0.5ML U/D PO PRN (17:50)
[2019-11-22] MEDS: Levothyroxine 100 MCG Tab PO SCH (08:35)
--- NOTE | 2019-11-22 09:48 | PCM.PN ---
- General Info Date of Service: 11/22/19 Subjective Update: No acute events overnight. Patient appears comfortable this morning but is not able to open his eyes or participate in any sort of review of systems. Heart rate has slowly climbed and is in the 120s. Oxygenation is stable in the mid to upper 80s. Blood pressures are now in the 80s. His has been by the bedside. - Review of Systems General: Denies: Fever - Patient Data Vitals - Most Recent: Last Vital Signs Temp 36.9 C 11/22/19 07:00 Pulse 117 H 11/22/19 07:00 Resp 23 H 11/22/19 07:00 BP 84/41 L 11/22/19 07:00 Pulse Ox 92 L 11/22/19 07:00 Weight - Most Recent: 77.111 kg Lab Results Last 24 Hours: Laboratory Results - last 24 hr 11/21/19 Range/Units 13:54 Sodium 155 H (140-148) mmol/L Potassium 4.2 (3.6-5.2) mmol/L Chloride 122 H (100-108) mmol/L Carbon Dioxide 23 (21-32) mmol/L Anion Gap 14.2 H (5.0-14.0) mmol/L BUN 48 H (7-18) mg/dL Creatinine 1.8 H (0.8-1.3) mg/dL Est Cr Clr Drug Dosing 32.11 mL/min Estimated GFR (MDRD) 36 L (>60) Glucose 120 H (74-106) mg/dL Calcium 7.8 L (8.5-10.1) mg/dL Med Orders - Current: Current Medications Albuterol (Proventil Neb Soln) 2.5 mg NEB Q2H PRN PRN Reason: Shortness of Breath Last Admin: 11/21/19 14:36 Dose: 2.5 mg Atropine Sulfate (Atropine 1%) 0 ml SL Q4H PRN PRN Reason: secretions Last Admin: 11/21/19 16:22 Dose: 4 drop Haloperidol Lactate (Haldol) 2 mg IVPUSH Q6H PRN PRN Reason: severe agitation Last Admin: 11/21/19 11:17 Dose: 2 mg Promethazine HCl 6.25 mg/ (Sodium Chloride) 50.25 mls @ 200 mls/hr IV Q6H PRN PRN Reason: Nausea/Vomiting Latanoprost (Xalatan 0.005% Ophth Soln) 0 ml EYEBOTH BEDTIME [facility] Last Admin: 11/20/19 20:57 Dose: 1 drop Levothyroxine Sodium (Synthroid) 100 mcg PO ACBREAKFAST [facility] Last Admin: 11/22/19 08:35 Dose: Not Given Lorazepam (Ativan Oral Concentrate 1mg/0.5 Ml U/D) 0.5 mg PO Q1H PRN PRN Reason: Agitation Last Admin: 11/21/19 17:50 Dose: 0.5 mg Morphine Sulfate (Morphine 10 Mg/0.5 Ml Oral Syringe) 10 mg PO Q1H PRN PRN Reason: air hunger Last Admin: 11/21/19 17:28 Dose: 10 mg Ondansetron HCl (Zofran Odt) 4 mg PO Q6H PRN PRN Reason: Nausea able to take PO Discontinued Medications Acetaminophen (Tylenol) 650 mg PO Q4H PRN PRN Reason: Pain (Mild 1-3)/fever Acetaminophen (Tylenol Extra Strength) 1,000 mg PO TID [facility] Last Admin: 11/21/19 14:31 Dose: Not Given Aspirin (Aspirin) 81 mg PO DAILY [facility] Last Admin: 11/21/19 11:21 Dose: Not Given Diphenhydramine HCl (Benadryl) 25 mg IVPUSH ONETIME ONE Stop: 11/20/19 05:23 Last Admin: 11/20/19 05:26 Dose: 25 mg Divalproex Sodium (Divalproex Sodium) 250 mg PO BIDMEALS [facility] Last Admin: 11/21/19 11:21 Dose: Not Given Finasteride (Proscar) 5 mg PO DAILY [facility] Last Admin: 11/21/19 11:22 Dose: Not Given Haloperidol Lactate (Haldol) 5 mg IM ONETIME ONE Stop: 11/20/19 04:05 Last Admin: 11/20/19 04:31 Dose: 5 mg Haloperidol Lactate (Haldol) 5 mg IVPUSH ONETIME ONE Stop: 11/20/19 05:23 Last Admin: 11/20/19 05:27 Dose: 5 mg Lactated Ringer's (Ringers, Lactated) 1,000 mls @ 1,000 mls/hr IV BOLUS ONE Stop: 11/20/19 05:02 Last Admin: 11/20/19 06:09 Dose: Not Given Sodium Chloride (Normal Saline) 1,000 mls @ 150 mls/hr IV ASDIRECTED [facility] Last Admin: 11/20/19 06:13 Dose: 150 mls/hr Potassium Chloride/Sodium Chloride (Normal Saline With 20 Meq Kcl) 1,000 mls @ 100 mls/hr IV ASDIRECTED [facility] Last Admin: 11/20/19 23:29 Dose: 100 mls/hr Dextrose/Water (Dextrose 5% In Water) 1,000 mls @ 100 mls/hr IV ASDIRECTED [facility] Last Admin: 11/21/19 08:09 Dose: 100 mls/hr Lorazepam (Ativan) 0.5 mg IVPUSH ONETIME ONE Stop: 11/20/19 05:13 Last Admin: 11/20/19 05:19 Dose: 0.5 mg Lorazepam (Ativan) 0.5 mg IVPUSH ONETIME ONE Stop: 11/20/19 06:15 Last Admin: 11/20/19 06:19 Dose: 0.5 mg Lorazepam (Ativan) 0.25 mg PO BID [facility] Last Admin: 11/21/19 11:21 Dose: Not Given Melatonin (Melatonin) 9 mg PO BEDTIME [facility] Last Admin: 11/20/19 20:56 Dose: 9 mg Memantine (Namenda) 10 mg PO BID [facility] Last Admin: 11/21/19 11:22 Dose: Not Given Morphine Sulfate (Morphine 10 Mg/0.5 Ml Oral Syringe) 5 mg PO Q2H PRN PRN Reason: Pain Last Admin: 11/21/19 14:30 Dose: 5 mg Risperidone (Risperidal) 0.25 mg PO QID [facility] Risperidone (Risperidal) 0.5 mg PO BID [facility] Last Admin: 11/21/19 11:22 Dose: Not Given [facility]ul[facility] ([facility]) [facility] Last Admin: 11/21/19 11:21 Dose: Not Given Trazodone HCl (Trazodone) 50 mg PO BEDTIME [facility] Last Admin: 11/20/19 20:57 Dose: 50 mg - Exam Quality Assessment: No: Supplemental Oxygen General: No Acute Distress, Lethargic. No: Alert Lungs: Normal Respiratory Effort Cardiovascular: Tachycardia GI/Abdominal Exam: No Distention Extremities: No Pedal Edema Psy/Mental Status: No: Alert Sepsis Event Note - Evaluation Sepsis Screening Result: No Definite Risk - Focused Exam Vital Signs: Vital Signs Temp Pulse Resp BP Pulse Ox 11/22/19 07:00 36.9 C 117 H 23 H 84/41 L 92 L Date Exam was Performed: 11/22/19 Time Exam was Performed: 16:19 - Problem List Review Problem List Initiated/Reviewed/Updated: Yes - My Orders Last 24 Hours: My Active Orders 11/21/19 14:13 RT Aerosol Therapy [RC] ASDIRECTED Albuterol [Proventil Neb Soln] 2.5 mg NEB Q2H PRN 11/21/19 15:55 Atropine Sulfate [Atropine 1%] 0 ml SL Q4H PRN Morphine [Morphine 10 MG/0.5 ML Oral Syringe] 10 mg PO Q1H PRN 11/21/19 15:57 LORazepam [Ativan ORAL Concentrate 1MG/0.5 ML U/D] 0.5 mg PO Q1H PRN Resuscitation Status Routine 11/21/19 Dinner NPO Now [Nothing per Oral Now Diet] [DIET] - Plan Plan:: ASSESSMENT AND PLAN - Alzheimer's dementia with behavioral disturbance-dependent in all of his ADLs and lethargic. He has been transitioned to comfort cares because of aspiration complicating the rapidly progressive dementia. I would anticipate that he will pass in a limited number of hours. -Comfort care only Suspected aspiration pneumonitis-event occurred 2 days ago. Significant decline in respiratory status yesterday but fairly stable overnight. He is on comfort cares only at this time. Encounter for palliative care-patient has advanced dementia and has been declining fairly rapidly. Family does not want aggressive interventions performed. Maintenance issues - - DVT prophylaxis -mechanical - GI prophylaxis -not indicated - Nutrition -nothing by mouth because of lethargy and recent agitation - Gonzalez catheter -not indicated Disposition - I would anticipate discharge to the home after the hospital stay Terrence Abel M.D.
[2019-11-22] MEDS: Morphine 10 MG/0.5 ML Oral Syringe PO PRN (11:01)
[2019-11-22] MEDS: Latanoprost 0.005% Ophth Soln 2.5 ML Bottle EYEBOTH SCH ×2 (20:07→20:09)
[2019-11-23] MEDS: Morphine 10 MG/0.5 ML Oral Syringe PO PRN ×5 (08:29→19:24)
[2019-11-23] MEDS: Levothyroxine 100 MCG Tab PO SCH (08:31)
--- NOTE | 2019-11-23 09:45 | PCM.PN ---
- General Info Date of Service: 11/23/19 Subjective Update: No acute events overnight. Patient has remained stable. He continues to be very lethargic. Still mildly tachycardic. Blood pressure is on the lower side. Oxygenation around 90% without any oxygen. As the morning has progressed he is become little bit more agitated. He is displaying intermittent David-Wahl respirations. I believe he is entering the actively dying process. Functional Status: Reports: Pain Controlled - Review of Systems General: Denies: Fever - Patient Data Vitals - Most Recent: Last Vital Signs Temp 37.2 C 11/22/19 21:00 Pulse 117 H 11/22/19 07:00 Resp 20 11/22/19 21:00 BP 100/70 11/22/19 21:00 Pulse Ox 91 L 11/22/19 21:00 Weight - Most Recent: 77.111 kg Med Orders - Current: Current Medications Albuterol (Proventil Neb Soln) 2.5 mg NEB Q2H PRN PRN Reason: Shortness of Breath Last Admin: 11/21/19 14:36 Dose: 2.5 mg Atropine Sulfate (Atropine 1%) 0 ml SL Q4H PRN PRN Reason: secretions Last Admin: 11/21/19 16:22 Dose: 4 drop Haloperidol Lactate (Haldol) 2 mg IVPUSH Q6H PRN PRN Reason: severe agitation Last Admin: 11/21/19 11:17 Dose: 2 mg Promethazine HCl 6.25 mg/ (Sodium Chloride) 50.25 mls @ 200 mls/hr IV Q6H PRN PRN Reason: Nausea/Vomiting Latanoprost (Xalatan 0.005% Ophth Soln) 0 ml EYEBOTH BEDTIME [facility] Last Admin: 11/22/19 20:09 Dose: Not Given Lorazepam (Ativan Oral Concentrate 1mg/0.5 Ml U/D) 0.5 mg PO Q1H PRN PRN Reason: Agitation Last Admin: 11/21/19 17:50 Dose: 0.5 mg Morphine Sulfate (Morphine 10 Mg/0.5 Ml Oral Syringe) 10 mg PO Q1H PRN PRN Reason: air hunger Last Admin: 11/23/19 08:29 Dose: 10 mg Ondansetron HCl (Zofran Odt) 4 mg PO Q6H PRN PRN Reason: Nausea able to take PO Discontinued Medications Acetaminophen (Tylenol) 650 mg PO Q4H PRN PRN Reason: Pain (Mild 1-3)/fever Acetaminophen (Tylenol Extra Strength) 1,000 mg PO TID [facility] Last Admin: 11/21/19 14:31 Dose: Not Given Aspirin (Aspirin) 81 mg PO DAILY [facility] Last Admin: 11/21/19 11:21 Dose: Not Given Diphenhydramine HCl (Benadryl) 25 mg IVPUSH ONETIME ONE Stop: 11/20/19 05:23 Last Admin: 11/20/19 05:26 Dose: 25 mg Divalproex Sodium (Divalproex Sodium) 250 mg PO BIDMEALS [facility] Last Admin: 11/21/19 11:21 Dose: Not Given Finasteride (Proscar) 5 mg PO DAILY [facility] Last Admin: 11/21/19 11:22 Dose: Not Given Haloperidol Lactate (Haldol) 5 mg IM ONETIME ONE Stop: 11/20/19 04:05 Last Admin: 11/20/19 04:31 Dose: 5 mg Haloperidol Lactate (Haldol) 5 mg IVPUSH ONETIME ONE Stop: 11/20/19 05:23 Last Admin: 11/20/19 05:27 Dose: 5 mg Lactated Ringer's (Ringers, Lactated) 1,000 mls @ 1,000 mls/hr IV BOLUS ONE Stop: 11/20/19 05:02 Last Admin: 11/20/19 06:09 Dose: Not Given Sodium Chloride (Normal Saline) 1,000 mls @ 150 mls/hr IV ASDIRECTED [facility] Last Admin: 11/20/19 06:13 Dose: 150 mls/hr Potassium Chloride/Sodium Chloride (Normal Saline With 20 Meq Kcl) 1,000 mls @ 100 mls/hr IV ASDIRECTED [facility] Last Admin: 11/20/19 23:29 Dose: 100 mls/hr Dextrose/Water (Dextrose 5% In Water) 1,000 mls @ 100 mls/hr IV ASDIRECTED [facility] Last Admin: 11/21/19 08:09 Dose: 100 mls/hr Levothyroxine Sodium (Synthroid) 100 mcg PO ACBREAKFAST [facility] Last Admin: 11/23/19 08:31 Dose: Not Given Lorazepam (Ativan) 0.5 mg IVPUSH ONETIME ONE Stop: 11/20/19 05:13 Last Admin: 11/20/19 05:19 Dose: 0.5 mg Lorazepam (Ativan) 0.5 mg IVPUSH ONETIME ONE Stop: 11/20/19 06:15 Last Admin: 11/20/19 06:19 Dose: 0.5 mg Lorazepam (Ativan) 0.25 mg PO BID [facility] Last Admin: 11/21/19 11:21 Dose: Not Given Melatonin (Melatonin) 9 mg PO BEDTIME [facility] Last Admin: 11/20/19 20:56 Dose: 9 mg Memantine (Namenda) 10 mg PO BID [facility] Last Admin: 11/21/19 11:22 Dose: Not Given Morphine Sulfate (Morphine 10 Mg/0.5 Ml Oral Syringe) 5 mg PO Q2H PRN PRN Reason: Pain Last Admin: 11/21/19 14:30 Dose: 5 mg Risperidone (Risperidal) 0.25 mg PO QID [facility] Risperidone (Risperidal) 0.5 mg PO BID [facility] Last Admin: 11/21/19 11:22 Dose: Not Given Tamsulosin HCl (Flomax) 0.4 mg PO BIDPC [facility] Last Admin: 11/21/19 11:21 Dose: Not Given Trazodone HCl (Trazodone) 50 mg PO BEDTIME [facility] Last Admin: 11/20/19 20:57 Dose: 50 mg - Exam Quality Assessment: No: Supplemental Oxygen General: No Acute Distress, Lethargic. No: Alert Lungs: No: Normal Respiratory Effort (increased work of breathing ) Cardiovascular: Tachycardia GI/Abdominal Exam: No Distention Extremities: No Pedal Edema Psy/Mental Status: No: Alert, Agitated Sepsis Event Note - Evaluation Sepsis Screening Result: No Definite Risk - Problem List Review Problem List Initiated/Reviewed/Updated: Yes - My Orders Last 24 Hours: My Active Orders 11/22/19 09:48 Transfer Patient (Change bed) [ADT] Routine - Plan Plan:: ASSESSMENT AND PLAN - Alzheimer's dementia with behavioral disturbance-dependent in all of his ADLs and lethargic. He has been transitioned to comfort cares because of aspiration complicating the rapidly progressive dementia. He appears to be actively dying at this time. -Comfort care only Suspected aspiration pneumonitis-event occurred 2 days ago. Significant decline in respiratory status yesterday but fairly stable overnight. He is on comfort cares only at this time. Encounter for palliative care-patient has advanced dementia and has been declining fairly rapidly. Family does not want aggressive interventions performed. Maintenance issues - - DVT prophylaxis -mechanical - GI prophylaxis -not indicated - Nutrition -nothing by mouth because of lethargy and recent agitation - Gonzalez catheter -not indicated Disposition - I would anticipate discharge to the home after the hospital stay Terrence Abel M.D.
[2019-11-23] MEDS: Haloperidol Lactate 5 MG/ML SDV IVPUSH PRN (11:31)
[2019-11-23] MEDS: LORazepam ORAL Concentrate 1MG/0.5ML U/D PO PRN (11:56)
[2019-11-23] MEDS ORDERED: LORazepam ORAL Concentrate 1MG/0.5ML U/D PO PRN (13:30)
[2019-11-23] MEDS: Atropine Sulfate Ophth 2 ML Drops SL PRN ×2 (15:42→19:17)
--- NOTE | 2019-11-24 08:52 | PCM.DCSUM1 ---
Discharge Summary - Hospital Course Brief History: 84-year-old male with Alzheimer's dementia with behavioral disturbance who presented with significant agitation shortly after discharge from [facility]. He was admitted for management of the agitation. Diagnosis: Stroke: No - Discharge Data Discharge Date: 11/23/19 Discharge Disposition: 20 Preliminary Cause of *Q: Respiratory Failure (probable aspiration pneumonitis) Condition: - Referral to Home Health Primary Care Physician: PCP None - Patient Summary/Data Consults: Consultations 11/20/19 07:30 Consult to Case Management/Photographic Colorist [CONS] Routine Comment: Physician Instructions: Service(s) to be Consulted: Case Manage/Behav Health Case Manage&Social Servic Hospital Course: Chris presented to the emergency room with significant agitation less than 24 hours after discharge from the [facility]. He appeared to be a little bit dehydrated and had mild hypernatremia but there was no evidence for infection. With his significant agitation he was not safe to go back to the memory care unit so he was admitted for management of the agitation. We did start him on a low-dose Depakote to help with mood stabilization. I transitioned his 4 times daily risperidone to twice daily for easier administration. And he had a good start to the day. Hospice was being considered given his rapid decline with his dementia but his was hoping that with a tuneup that we could get him back to the memory care or more ideally get him to a memory care closer to her home. Unfortunately the evening of admission he had a coughing episode while he was taking his pills and there was concern for aspiration. His respiratory status was stable over the next 24 hours but then he started to develop a fairly quick decline in his respiratory status with increased work of breathing and hypoxia. He developed increased agitation with this increased work of breathing as well. I talked to his and she felt that given his rapid decline in quality of life that he would not want aggressive interventions. We transition to comfort cares at this point. He was not able to take any of his usual medications but did not have significant behavior issues. We did utilize some morphine and lorazepam for the air hunger and mild restlessness. Surprisingly over the next 24 hours he did start to make some improvements. His heart rate which had fairly quickly become tachycardic the afternoon before was starting to return to a normal range and his oxygen saturations were around 90% without any oxygen. Then he started to have further decline with increasing work of breathing. We increased his doses of morphine and lorazepam with increased air hunger and agitation. The patient passed peacefully on the evening of 11/22. His and family friend were present at the time of his passing. No attempts at resuscitation were made per his previously expressed wishes. - Discharge Plan *PRESCRIPTION DRUG MONITORING PROGRAM REVIEWED*: No *COPY OF PRESCRIPTION DRUG MONITORING REPORT IN PATIENT IRIS: No Home Medications: Home Meds Acetaminophen [Tylenol Extra Strength] 1,000 mg PO TID 11/20/19 [History] Aspirin 81 mg PO DAILY 11/20/19 [History] Finasteride 5 mg PO DAILY 11/20/19 [History] LORazepam [Lorazepam] 0.25 mg PO BID 11/20/19 [History] Latanoprost/Pf [Latanoprost 0.005% Eye Drop] 1 drop EYEBOTH BEDTIME 11/20/19 [ History] Levothyroxine Sodium [Synthroid] 100 mcg PO ACBREAKFAST 11/20/19 [History] Memantine HCl 10 mg PO BID 11/20/19 [History] Tamsulosin HCl [Flomax] 0.4 mg PO BID 11/20/19 [History] risperiDONE 0.25 mg PO QID 11/20/19 [History] traZODone HCl [Trazodone HCl] 50 mg PO BEDTIME 11/20/19 [History] Forms: ED Department Discharge Referrals: PCP,None [Primary Care Provider] - - Discharge Summary/Plan Comment DC Time >30 min.: No - Patient Data Vitals - Most Recent: Last Vital Signs Temp 37.2 C 11/22/19 21:00 Pulse 81 11/23/19 07:00 Resp 22 H 11/23/19 07:00 BP 86/65 L 11/23/19 07:00 Pulse Ox 73 L 11/23/19 19:00 Weight - Most Recent: 77.111 kg Med Orders - Current: Current Medications Discontinued Medications Acetaminophen (Tylenol) 650 mg PO Q4H PRN PRN Reason: Pain (Mild 1-3)/fever Acetaminophen (Tylenol Extra Strength) 1,000 mg PO TID NAYELI Last Admin: 11/21/19 14:31 Dose: Not Given Albuterol (Proventil Neb Soln) 2.5 mg NEB Q2H PRN PRN Reason: Shortness of Breath Last Admin: 11/21/19 14:36 Dose: 2.5 mg Aspirin (Aspirin) 81 mg PO DAILY [facility] Last Admin: 11/21/19 11:21 Dose: Not Given Atropine Sulfate (Atropine 1%) 0 ml SL Q4H PRN PRN Reason: secretions Last Admin: 11/23/19 19:17 Dose: 4 drop Diphenhydramine HCl (Benadryl) 25 mg IVPUSH ONETIME ONE Stop: 11/20/19 05:23 Last Admin: 11/20/19 05:26 Dose: 25 mg Divalproex Sodium (Divalproex Sodium) 250 mg PO BIDMEALS [facility] Last Admin: 11/21/19 11:21 Dose: Not Given Finasteride (Proscar) 5 mg PO DAILY [facility] Last Admin: 11/21/19 11:22 Dose: Not Given Haloperidol Lactate (Haldol) 5 mg IM ONETIME ONE Stop: 11/20/19 04:05 Last Admin: 11/20/19 04:31 Dose: 5 mg Haloperidol Lactate (Haldol) 5 mg IVPUSH ONETIME ONE Stop: 11/20/19 05:23 Last Admin: 11/20/19 05:27 Dose: 5 mg Haloperidol Lactate (Haldol) 2 mg IVPUSH Q6H PRN PRN Reason: severe agitation Last Admin: 11/23/19 11:31 Dose: 2 mg Lactated Ringer's (Ringers, Lactated) 1,000 mls @ 1,000 mls/hr IV BOLUS ONE Stop: 11/20/19 05:02 Last Admin: 11/20/19 06:09 Dose: Not Given Sodium Chloride (Normal Saline) 1,000 mls @ 150 mls/hr IV ASDIRECTED [facility] Last Admin: 11/20/19 06:13 Dose: 150 mls/hr Promethazine HCl 6.25 mg/ (Sodium Chloride) 50.25 mls @ 200 mls/hr IV Q6H PRN PRN Reason: Nausea/Vomiting Potassium Chloride/Sodium Chloride (Normal Saline With 20 Meq Kcl) 1,000 mls @ 100 mls/hr IV ASDIRECTED [facility] Last Admin: 11/20/19 23:29 Dose: 100 mls/hr Dextrose/Water (Dextrose 5% In Water) 1,000 mls @ 100 mls/hr IV ASDIRECTED [facility] Last Admin: 11/21/19 08:09 Dose: 100 mls/hr Latanoprost (Xalatan 0.005% Ophth Soln) 0 ml EYEBOTH BEDTIME [facility] Last Admin: 11/22/19 20:09 Dose: Not Given Levothyroxine Sodium (Synthroid) 100 mcg PO ACBREAKFAST [facility] Last Admin: 11/23/19 08:31 Dose: Not Given Lorazepam (Ativan) 0.5 mg IVPUSH ONETIME ONE Stop: 11/20/19 05:13 Last Admin: 11/20/19 05:19 Dose: 0.5 mg Lorazepam (Ativan) 0.5 mg IVPUSH ONETIME ONE Stop: 11/20/19 06:15 Last Admin: 11/20/19 06:19 Dose: 0.5 mg Lorazepam (Ativan) 0.25 mg PO BID [facility] Last Admin: 11/21/19 11:21 Dose: Not Given Lorazepam (Ativan Oral Concentrate 1mg/0.5 Ml U/D) 0.5 mg PO Q1H PRN PRN Reason: Agitation Last Admin: 11/23/19 11:56 Dose: 0.5 mg Lorazepam (Ativan Oral Concentrate 1mg/0.5 Ml U/D) 1 mg PO Q1H PRN PRN Reason: Agitation Melatonin (Melatonin) 9 mg PO BEDTIME [facility] Last Admin: 11/20/19 20:56 Dose: 9 mg Memantine (Namenda) 10 mg PO BID [facility] Last Admin: 11/21/19 11:22 Dose: Not Given Morphine Sulfate (Morphine 10 Mg/0.5 Ml Oral Syringe) 5 mg PO Q2H PRN PRN Reason: Pain Last Admin: 11/21/19 14:30 Dose: 5 mg Morphine Sulfate (Morphine 10 Mg/0.5 Ml Oral Syringe) 10 mg PO Q1H PRN PRN Reason: air hunger Last Admin: 11/23/19 11:31 Dose: 10 mg Morphine Sulfate (Morphine 10 Mg/0.5 Ml Oral Syringe) 20 mg PO Q1H PRN PRN Reason: air hunger Last Admin: 11/23/19 19:24 Dose: 20 mg Ondansetron HCl (Zofran Odt) 4 mg PO Q6H PRN PRN Reason: Nausea able to take PO Risperidone (Risperidal) 0.25 mg PO QID [facility] Risperidone (Risperidal) 0.5 mg PO BID [facility] Last Admin: 11/21/19 11:22 Dose: Not Given [facility] Admin: 11/21/19 11:21 Dose: Not Given Trazodone HCl (Trazodone) 50 mg PO BEDTIME [facility] Last Admin: 11/20/19 20:57 Dose: 50 mg *Q Meaningful Use (DIS) - VTE *Q VTE Mechanical Contraindications *Q: At Risk for Falls VTE Anticoagulation Contraindications: Medical/Procedure Contrai
== END 2019-11-23 23:20 | disposition expired | DRG 56 ==
LOC: JP.ED 03:58 → JP.ICU 07:30
PROVIDERS: ADMIT Family Medicine; ATTEND Internal Medicine
DX: G30.9 Alzheimer's disease, unspecified (principal); J69.0 Pneumonitis due to inhalation of food and vomit; J96.90 Respiratory failure, unspecified, unspecified whether with hypoxia or hypercapnia; F02.81 Dementia in other diseases classified elsewhere, unspecified severity, with behavioral disturbance; E87.0 Hyperosmolality and hypernatremia; E87.1 Hypo-osmolality and hyponatremia; Z51.5 Encounter for palliative care; Z66 Do not resuscitate; E86.0 Dehydration; R06.4 Hyperventilation; H40.9 Unspecified glaucoma; H35.30 Unspecified macular degeneration; I48.91 Unspecified atrial fibrillation; K21.9 Gastro-esophageal reflux disease without esophagitis; N18.3 Chronic kidney disease, stage 3 (moderate); E78.00 Pure hypercholesterolemia, unspecified; M54.9 Dorsalgia, unspecified; N40.1 Benign prostatic hyperplasia with lower urinary tract symptoms; N39.498 Other specified urinary incontinence; G62.9 Polyneuropathy, unspecified; G89.29 Other chronic pain; F32.9 Major depressive disorder, single episode, unspecified; E03.9 Hypothyroidism, unspecified; Z88.0 Allergy status to penicillin; E87.3 Alkalosis; Z88.8 Allergy status to other drugs, medicaments and biological substances; R45.1 Restlessness and agitation; F03.90 Unspecified dementia, unspecified severity, without behavioral disturbance, psychotic disturbance, mood disturbance, and anxiety; Z95.0 Presence of cardiac pacemaker; Z87.442 Personal history of urinary calculi; Z88.1 Allergy status to other antibiotic agents; Z86.73 Personal history of transient ischemic attack (TIA), and cerebral infarction without residual deficits; Z88.6 Allergy status to analgesic agent; Z88.2 Allergy status to sulfonamides; Z79.82 Long term (current) use of aspirin; Z79.890 Hormone replacement therapy; Z79.899 Other long term (current) drug therapy
CPT/HCPCS: 36415; 36600; 51798; 80048; 81001; 82803; 84484; 85027; 96361; 96372; 96374; 96375; 96376; 99285; J1200; J1630 ×2; J2060 ×2; J7030; J7120; 71045; 80076; 94640; A9270-GY; J3480; J7060